=== PATIENT | male | born 1995 | race Caucasian/White ===

== ENCOUNTER → 2020-06-22 10:25 | Outpatient (CLI) | payer OTHER, SELFPAY ==
[2020-06-22 11:55] LABS: COVID19 -Nasal RAPID Negative (Negative)
== END ==
PROVIDERS: Visit Provider Surgery
DX: Z01.812 Encounter for preprocedural laboratory examination (principal); Z20.822 Contact with and (suspected) exposure to COVID-19
CPT/HCPCS: 87635; C9803

== ENCOUNTER 2020-06-23 09:01 | Day surgery (SDC) | payer OTHER, SELFPAY ==
[2020-06-05 12:35] VITALS: BMI 32.3
[2020-06-23] VITALS (10 sets, daily range): BP systolic 115–141; BP diastolic 56–92; PULSE 81–99; RESP 10–17; TEMP 36.3–37.1; O2SAT 93–99; BMI 32.3
--- NOTE | 2020-06-23 | PATH_ITS ---
[facility] Accession Number: [id number] . 01 Material submitted: . body - PILONDIAL CYST . 01 Diagnosis: Pilonidal Cyst, Excision: Squamous lined epidermal invagination with dermal fibrosis, mixed inflammation, and free hair shafts, consistent with pilonidal cyst. [facility] 06/29/2020 0911 Local . 01 Electronically signed: . Justus Askew MD, Dermatopathologist NPI- [id number] . 01 Gross description: . The specimen is received in formalin, labeled pilonidal cyst and consists of a 2.6 x 1.0 cm hahn skin excised to a depth of 2.0 cm. The margin is inked blue. The specimen is sectioned to reveal a 1.0 x 0.8 x 0.7 cm hahn-pink nodule within the subcutaneous tissue. The specimen is submitted in cassettes A1-A5. ([id number]) /MRV 06/29/202013 Local . 01 Pathologist provided ICD-10: L05.91 . 01 CPT . 735907 Performed at: [address] [facility] [address], [place], [place] [id number] MD Fernando Paredes MD Phone: [phone]
[2020-06-23] MEDS: LACTATED RINGERS 1,000 ML 42 ML IV (09:48)
--- NOTE | 2020-06-23 09:48 | PM.PREOP ---
Pre-operative Note Interval Note History & Physical reviewed/Exam performed by Physician: Yes Changes to H&P: No
[2020-06-23] MEDS: ACETAMINOPHEN 325 MG TABLET 975 MG PO (09:50)
[2020-06-23] MEDS: CEFAZOLIN 2 GM/100 ML FROZ.PIGGY IV (10:08)
--- NOTE | 2020-06-23 10:21 | SUR.OPER ---
Prone on padded OR bed, head in foam head support, gel chest rolls, gel pad under knees, pillow under lower legs, toes free of pressure, arms secured on padded arm boards at <90 degrees abduction. Safety belt at thigh.
[2020-06-23] MEDS: BUPIVACAINE 0.25% (PF) VIAL 30 ML INJ (10:24)
--- NOTE | 2020-06-23 11:20 | PM.OP.1 ---
Operative Date/Time/Diagnoses Date of procedure: 06/23/20 Time of procedure: 11:20 Pre-op diagnosis: pilonidal cyst Post-op diagnosis: same Procedure & Clinicians Procedure: Excision of pilonidal cyst Same procedure as scheduled: Yes Indications: 25M symptomatic pilonidal cyst Surgeon: Rui Armstrong Anesthesia Type: General Operative Notes Findings: Non infected pilonidal cyst. Wound 4 cm length Specimen(s): other (pilonidal cyst) Estimated Blood Loss (mL): 50 Procedure in detail: Patient was right to the operating room and bilateral lower extremity compression devices were applied. General anesthesia was induced and he was intubated with a endotracheal tube. He was then placed into the prone position. 2 g of Ancef were given prior to skin incision. He was then prepped and draped in the usual sterile fashion. A time-out was performed ensure the correct patient procedure necessary equipment within the operating room. 0.25% bupivicaine was injected into the skin. An elliptical incision was made around the multiple pits of the pilonidal cyst. The cyst did not appear to be actively infective and it was excised in its entirety off of the sacral fascia. Hemostasis was achieved the wound measured about 4 cm in length. Subcutaneous flaps were raised. The wound was closed in multiple layers using Vicryl, Eldon drain 10F was placed into the base of the wound and tunneled out into the surrounding tissue. The skin was closed with interrupted Nylon suture. Complications: none Post-operative Condition: stable Disposition: same day surgery
[2020-06-23] MEDS: OXYCODONE IR 5 MG TABLET PO (11:39)
== END 2020-06-23 12:26 | disposition home or self-care (01) ==
PROVIDERS: Referring Provider Surgery; Visit Provider Surgery
PROC: (CPT 11770; principal; 2020-06-23 10:15)
DX: L05.91 Pilonidal cyst without abscess (principal)
CPT/HCPCS: 11770; 82962; J0330; J0690; J1100; J2250; J2405; J2704; J3010